=== PATIENT | female | born 1935 | race Caucasian/White ===

== ENCOUNTER 2020-11-06 21:16 | Emergency (ER) | payer MEDICARE, OTHER ==
--- NOTE | 2020-11-06 21:19 | EDM.PDOC ---
ED HPI GENERAL MEDICAL PROBLEM - General Stated Complaint: NOSE BLEED Time Seen by Provider: 11/06/20 21:19 Source of Information: Reports: Patient, RN, RN Notes Reviewed - History of Present Illness INITIAL COMMENTS - FREE TEXT/NARRATIVE: Patient is an 85-year-old female who presents to ER per [facility] ambulance service from the [facility] with complaint of epistaxis. Patient states she has had a bloody nose for couple hours today. Nursing staff states they held pressure for 1-1/2 to 2 hours and that the patient's nose was still bleeding. Patient states she has had 2 Covid tests in the past couple of days, and the use the left nostril for the testing. Daughter also states patient has chronic sinusitis and is blowing her nose frequently, and also picks at her nose due to the sinusitis. Bleeding had stopped upon arrival to the ER. Onset: Today - Related Data Allergies Allergy/AdvReac Type Severity Reaction Status Date / Time loratadine Allergy Cannot Verified 11/06/20 22:23 Remember Home Meds: Home Meds Rivaroxaban [Xarelto] 10 mg PO DAILY 11/06/20 [History] ED ROS ENT - Review of Systems Review Of Systems: Comprehensive ROS is negative, except as noted in HPI. ED EXAM, ENT - Physical Exam Exam: See Below Exam Limited By: Physical Impairment General Appearance: Alert, WD/WN, No Apparent Distress, Lethargic Eye Exam: Bilateral Eye: EOMI, Normal Inspection Ears: Normal External Exam, Hearing Grossly Normal Nose: Normal Inspection, Dried Blood, Other (Septum of left nare has dried blood) Mouth/Throat: Normal Inspection, Normal Gums, Normal Lips, Normal Oropharynx, Normal Teeth, Other (dried blood on lips) Head: Atraumatic, Normocephalic Neck: Normal Inspection, Supple, Non-Tender, Full Range of Motion Respiratory/Chest: No Respiratory Distress, No Accessory Muscle Use, Chest Non- Tender, Decreased Breath Sounds, Crackles (bases bilaterally) Cardiovascular: Normal Peripheral Pulses, Regular Rate, Rhythm, No Edema, No Gallop, No JVD, No Murmur, No Rub GI/Abdominal: Normal Bowel Sounds, Soft, Non-Tender, No Organomegaly, No Distention, No Abnormal Bruit, No Mass (Female) Exam: Deferred Rectal (Female) Exam: Deferred Back: Normal Inspection, Full Range of Motion Extremities: Normal Inspection, Non-Tender, No Pedal Edema, Normal Capillary Refill, Limited Range of Motion Neurological: Alert, Oriented, Normal Cognition Psychiatric: Normal Affect, Normal Mood Skin: Warm, Dry, Intact, Normal Color, No Rash Lymphatic: No Adenopathy ED ENT PROCEDURES - Epistaxis Procedure Indication: Controlled Recent anticoagulants/antiplatlets: Yes Uncontrolled HTN: No Recent septal/nasal surgery: No Site of bleeding: Left Nare Ice pack to area: No Chemical cautery: Silver Nitrate Topical (x 3) Anterior Packing: Plain Gauze Strip Complications: No Complication Description: Slight trickling from the area was swabbed with a silver nitrate stick. Minimal bleeding continues, pressure was applied with a nasal clamp for 10 minutes. Course - Vital Signs Last Recorded V/S: Last Vital Signs Temp 98.2 F 11/06/20 21:16 Pulse 79 11/06/20 21:16 Resp 16 11/06/20 21:16 BP 126/66 11/06/20 21:16 Pulse Ox 92 L 11/06/20 21:16 - Orders/Labs/Meds Labs: Laboratory Tests 11/06/20 11/06/20 Range/Units 21:55 21:55 WBC 7.4 (4.0-10.0) x10^3/uL RBC 4.96 (4.00-5.50) x10^6/uL Hgb 12.5 (12.0-16.0) g/dL Hct 38.9 (33.0-47.0) % MCV 78.4 (78.0-93.0) fL MCH 25.2 L (26.0-32.0) pg MCHC 32.1 (32.0-36.0) g/dL RDW Coeff of [place] 21.3 H (10.0-15.0) % Plt Count 321 (130-400) x10^3/uL Neut % (Auto) 85.0 H (50.0-80.0) % Lymph % (Auto) 7.2 L (25.0-50.0) % [place] % (Auto) 7.7 (2.0-11.0) % Eos % (Auto) 0.0 (0.0-4.0) % Baso % (Auto) 0.1 L (0.2-1.2) % PT 13.7 H (9.9-12.5) SEC INR 1.2 L (2.0-3.5) - Re-Assessments/Exams Free Text/Narrative Re-Assessment/Exam: 11/06/20 22:33 Lab work discussed with patient and daughter. Bleeding has stopped at this time after silver nitrate stick and pressure. Patient instructed not to blow nose for at least 2 days, no picking at the nose. Suggest no nasal swabs for Covid testing. Departure - Departure Time of Disposition: 22:36 Disposition: DC/Tfer to Medicaid [facility] Condition: Fair Clinical Impression: Epistaxis not due to trauma - Discharge Information *PRESCRIPTION DRUG MONITORING PROGRAM REVIEWED*: No *COPY OF PRESCRIPTION DRUG MONITORING REPORT IN PATIENT ISHA: No Instructions: Nosebleed, [id number] Referrals: Latesha Garcia MD [Primary Care Provider] - Additional Instructions: Return to the ER with any worsening of symptoms Follow-up with your primary care provider regarding chronic sinusitis Suggest no nasal swabs for Covid testing No blowing the nose for 2 days No picking at the nose Sepsis Event Note (ED) - Focused Exam Vital Signs: Vital Signs Temp Pulse Resp BP Pulse Ox 11/06/20 21:16 98.2 F 79 16 126/66 92 L
== END 2020-11-06 23:05 ==
LOC: VM.ED 21:16
DX: R04.0 Epistaxis (principal); Z79.01 Long term (current) use of anticoagulants; Z88.5 Allergy status to narcotic agent
CPT/HCPCS: 30901; 36415; 85025; 85610; 99283; 99283-25